=== PATIENT | female | born 1975 | race Two or more races ===

== ENCOUNTER → 2024-10-14 | Day surgery (SDC) | payer BC ==
[2024-10-11 13:39] LABS: Hematocrit 45.5 % (36.0-46.0); Hemoglobin 15.3 g/dL (12.2-16.2); Mean Corpuscular Hemoglobin 29.4 pg (28.0-32.0); Mean Corpuscular Volume 87.6 fL (80.0-100.0); Nucleated Red Blood Cells % 0.1 %
[2024-10-11 13:52] LABS: INR 1.01 (0.9-1.15); Partial Thromboplastin Time 28.2 SEC (24.5-34.5); Prothrombin Time 10.7 sec (9.3-11.8)
[2024-10-11 14:09] LABS: Alanine Aminotransferase 21 U/L (7-40); Albumin 4.7 g/dL (3.2-4.8); Alkaline Phosphatase 58 U/L (46-116); Anion Gap 9 (5-15); BUN/Creatinine Ratio 18.5 (10.0-20.0); Bilirubin, Total 0.7 mg/dL (0.2-1.0); Blood Urea Nitrogen 12 mg/dL (9-23); Calcium 9.5 mg/dL (8.7-10.4); Carbon Dioxide 28 mmol/L (20-31); Chloride 105 mmol/L (98-107); Glucose 95 mg/dL (74-106); Potassium 3.9 mmol/L (3.5-5.1); Sodium 142 mmol/L (136-145); Total Protein 7.4 g/dL (5.7-8.2)
[~2024-10-14] VITALS: Ht 165.1 cm; Wt 60.3 kg
[~2024-10-14] MED LIST: RIME75TA PO
[2024-10-14] MEDS: MIDAZOLAM HCL 2MG/2ML 2ml VIAL (1mg/ml) ONE (11:43)
[2024-10-14] MEDS: fentaNYL CITRATE 100 MCG/2 ML VL ONE (11:43)
--- NOTE | 2024-10-14 11:58 | DVHNC2 ---
Procedure - ATE OF PROCEDURE: 2024 SURGEON: Chichi Lomeli MD REFERRING PROVIDER: Dr Gallardo ([facility]) PROCEDURE PERFORMED: 1. Colonoscopy with moderate sedation INDICATIONS FOR THE PROCEDURE: Patient is a 49-year-old female presents for outpatient colonoscopy for screening and complains of history of bloating. PRE-PROCEDURE DIAGNOSIS: 1. Colon cancer screening 2. Bloating POSTPROCEDURE DIAGNOSIS 1. Internal and external hemorrhoids otherwise normal colonoscopy MEDICATIONS USED: For mg of Versed IV and 50 mcg of fentanyl IV DETAILS OF THE PROCEDURE: Informed consent was obtained after risks, benefits, and alternatives, were discussed at length with the patient. The patient gave consent to the procedure as well as the medication used for sedation. The patient was placed in the left lateral decubitus position. Digital rectal exam showed internal and external hemorrhoids. An Olympus variable torsion pediatric colonoscope was inserted into the rectum and advanced to the cecum. The cecum was identified by the ileocecal valve and the appendiceal orifice. [place] bowel prep score of 8 was noted. The scope was then withdrawn. There were no large polyps, masses, strictures, or arteriovenous malformation seen. Retroflexion showed internal hemorrhoids. More than 6 minutes withdrawal time. The patient tolerated the procedure well. Start time: 1146 a.m. Cecum time: 1149 a.m. End time: 1155 a.m. IMPRESSION: Internal hemorrhoids, small external hemorrhoids otherwise normal colonoscopy RECOMMENDATIONS: 1. Follow up with primary care physician 2. High-fiber diet 3. Consider further workup for bloating 4. Repeat colonoscopy in 10 years unless otherwise indicated I WOULD LIKE TO THANK DR. GALLARDO FOR THIS REFERRAL CHICHI LOMELI MD Oct 14, 2024 11:57
[2024-10-14 11:59] VITALS: PULSE 72; RESP 12; TEMP 97.4; O2SAT 95
[2024-10-14 12:15] VITALS: BP 98/56; PULSE 72; RESP 18; O2SAT 96
== END | disposition home or self-care (01) ==
LOC: GI 09:21
PROVIDERS: ATTEND Specialist
DX: R14.0 Abdominal distension (gaseous) (principal); K64.8 Other hemorrhoids; K64.4 Residual hemorrhoidal skin tags; G43.909 Migraine, unspecified, not intractable, without status migrainosus; Z98.891 History of uterine scar from previous surgery
CPT/HCPCS: 36415; 45378; 80053; 81025; 85025; 85610; 85730; J2250; J3010